=== PATIENT | male | born 1950 | race Caucasian/White ===

== ENCOUNTER → 2022-03-28 10:01 | Outpatient (CLI) | payer MEDICARE, SELFPAY ==
--- NOTE | 2022-03-28 | DI.MG.S_ITS ---
MALE BILATERAL DIGITAL DIAGNOSTIC MAMMOGRAM 3D/2D: 03/28/2022 CLINICAL: Palpable left breast lump. No prior exams were available for comparison. There is gynecomastia in both breasts that correlates with clinical concern. There are two focal asymmetries, possibly oval circumscribed masses, in the left breast central to the nipple anterior depth measuring 3-4mm. No other significant masses, calcifications, or other findings are seen in either breast. Left greater than right gynecomastia. IMPRESSION: INCOMPLETE: NEEDS ADDITIONAL IMAGING EVALUATION Left greater than right gynecomastia, corresponding to area of clinical concern. There are two focal asymmetries, possibly oval circumscribed masses, in the left breast central to the nipple anterior depth measuring 3-4mm. An ultrasound is recommended. This exam was interpreted at Station ID: [id number]. NOTE: For mammograms, a report in lay terms will be sent to the patient. Approximately 15% of breast malignancies will not be visualized mammographically. In the management of a palpable breast mass, a negative mammogram must not discourage biopsy of a clinically suspicious lesion. Electronically Signed By: Arnold Hammer M.D. lc/:03/28/2022 12:39:24 letter sent: Additional Imaging Needed ACR BI-RADS Category 0: Incomplete [id number]
== END ==
PROVIDERS: PCP Nurse Practitioner Family; Referring Provider Nurse Practitioner Family; Visit Provider Nurse Practitioner Family
DX: N63.20 Unspecified lump in the left breast, unspecified quadrant; R92.8 Other abnormal and inconclusive findings on diagnostic imaging of breast; N62 Hypertrophy of breast
CPT/HCPCS: 77066; G0279

== ENCOUNTER → 2022-04-01 09:00 | Outpatient (CLI) | payer MEDICARE, SELFPAY ==
--- NOTE | 2022-04-01 | DI.US.S_ITS ---
LIMITED ULTRASOUND OF LEFT BREAST: 04/01/2022 CLINICAL: Patient returns today to evaluate a focal asymmetry in the left breast. Comparison is made to exam dated: 03/28/2022 mammogram - [facility]. Color flow ultrasound of the left breast retroareolar was performed. Kolb scale images of the real-time examination were reviewed. There is gynecomastia in the left breast that correlates with mammography and palpable abnormality. There are no focal abnormalities such as cysts or solid masses. Normal vascular flow with color Doppler imaging. IMPRESSION: BENIGN There is no sonographic evidence of malignancy. Asymmetric gynecomastia is present and may be symptomatic. The patient should follow up with his primary care physician to discuss possible contributing factors including medication changes, and hormonal or lifestyle factors. Findings and recommendations were conveyed to the patient at time of exam. This exam was interpreted at Station ID: [id number]. Electronically Signed By: Mavis gregg/:04/01/2022 09:25:33 letter sent: Normal Exam Ultrasound BI-RADS: 2 Benign
== END ==
PROVIDERS: PCP Nurse Practitioner Family; Referring Provider Nurse Practitioner Family; Visit Provider Nurse Practitioner Family
DX: N63.20 Unspecified lump in the left breast, unspecified quadrant (principal); N62 Hypertrophy of breast
CPT/HCPCS: 76642

== ENCOUNTER → 2024-03-01 11:39 | Outpatient (CLI) | payer MEDICARE, SELFPAY ==
--- NOTE | 2024-03-01 11:41 | DI.US.S_ITS ---
PROCEDURE: US EXTREMITY NONVASC LOWER LT INDICATIONS: SUBCUTANEOUS NODULE OF LEFT FOOT TECHNIQUE: Real-time scanning was performed of the left medial plantar foot , with image documentation. COMPARISON: None. FINDINGS: At the area of concern, there is a 1.9 x 0.8 x 1.9 cm hypoechoic, subcutaneous nodule with internal vascularity. IMPRESSION: Indeterminate 1.9 cm nodule at the left medial plantar foot. Percutaneous sampling recommended for evaluation. Dictated by: Ishan Early M.D. on 03/03/2024 at 15:29 Approved by: Ishan Early M.D. on 03/03/2024 at 15:31
== END ==
PROVIDERS: PCP Family Medicine; Referring Provider Family Medicine; Visit Provider Family Medicine
DX: R22.42 Localized swelling, mass and lump, left lower limb (principal)
CPT/HCPCS: 76882

== ENCOUNTER → 2024-03-18 14:23 | Outpatient (CLI) | payer MEDICARE, SELFPAY ==
--- NOTE | 2024-03-18 14:26 | DI.US.S_ITS ---
PROCEDURE: US BIOPSY MUSCLE SUPERFICIAL INDICATIONS: SUBCUTANEOUS NODULE OF LEFT FOOT TECHNIQUE: The indications, alternatives, benefits, risks, and complications of the procedure were explained to the patient. Written informed consent was obtained and placed in the chart. Continuous EKG and hemodynamic monitoring was started by trained personnel. Real-time sonography was utilized to choose the site for percutaneous left foot biopsy. The skin was prepped and draped in the usual sterile fashion. 1% lidocaine was infiltrated down to the site of interest. A coaxial needle was then advanced into the site of interest under direct sonographic visualization. A biopsy apparatus was then utilized, and core biopsies were obtained. The needle was then withdrawn; a bandage was applied to the biopsy site. COMPARISON: None. FINDINGS: Biopsy site(s): Plantar left midfoot nodule. Needle: [facility] biopsy needle set. Number of passes: 4 Medications: 1% lidocaine for local anaesthesia. Complications: None. IMPRESSION: Successful ultrasound-guided left plantar foot nodule biopsy, with pathology results pending. Dictated by: Hari Agustin M.D. on 03/18/2024 at 16:10 Approved by: Hari Agustin M.D. on 03/18/2024 at 16:11
--- NOTE | 2024-03-18 15:20 | PATH_ITS ---
[facility] Accession Number: [id number] No. of containers..01 Tissue . 01 Material submitted: . foot - LEFT FOOT MASS PLANTAR . 01 Diagnosis: SOFT TISSUE, LEFT FOOT MASS PLANTAR, BIOPSY: Scant fibroblastic tissue. See comment. MRV 03/22/2024 1317 Local . 01 Comment: The sample is sparse and the findings are nondiagnostic. However, if this represents lesional tissue, in the appropriate clinical context, plantar fibromatosis is a dignostic consideration. Other differential diagnosis may include fibroma of tendon sheath amongst other possibilities. If clinical concern for a worrisome lesion exists, additional sampling would be judicious. . 01 Electronically signed: . Daria Gilbert MD, Pathologist NPI- [id number] . 01 Gross description: . Received in formalin, labeled with two patient identifiers and US/US biopsy muscle superficial on the specimen container and left foot mass plantar on the specimen requisition. The specimen consists of multiple fragmented white, irregular soft tissue cores aggregating to 0.2 x 0.1 x 0.1 cm. The specimens are filtered and entirely submitted in cassette A1. ([id number]) /R 03/19/2024 1817 Local . 01 Microscopic: . The spindled cells are positive for smooth muscle actin. Beta-catenin shows non specific cytoplasmic positivity. THe spindle cells are negative for S100, MAILE, UZAIR, and CD34. All controls stain appropriately. . * This test was developed and the performance characteristics were validated by [employer]. It has not been cleared or approved by the U.[place]. Food and Drug Administration. . 01 Pathologist provided ICD-10: M72.2 . 01 CPT . 047029, U12598, N63315 Specimen Comment: A courtesy copy of this report has been sent to [facility] Pathology Performed at: [address] [facility] [address], [place], [place] [id number] MD Tom Hassan MD Phone: [phone]
== END ==
PROVIDERS: PCP Family Medicine; Visit Provider Radiology Diagnostic Radiology
DX: R22.42 Localized swelling, mass and lump, left lower limb (principal)
CPT/HCPCS: 20200; 76942